=== PATIENT | male | born 1980 | race Caucasian/White ===

== ENCOUNTER 2021-09-18 16:58 | Emergency (ER) | payer OTHER ==
[2021-09-18 17:12] VITALS: BP 131/84; PULSE 65; TEMP 98; BMI 24.7
[2021-09-18] MEDS ORDERED: ASPIRIN 81 MG CHEWABLE TABLETS PO ONE (17:34)
[2021-09-18] MEDS ORDERED: ASPIRIN 81 MG CHEWABLE TABLETS ONE (17:40)
[2021-09-18 18:24] LABS: BASO % 0.6 % (0-2.0); EOS % 2.2 % (0-4.5); HEMATOCRIT 45.7 % (35.4-49); HEMOGLOBIN 15.5 GM/dL (11.7-16.9); LYMPH % 41.3 % (8-40); MCH 32.5 pg (25.7-33.7); MEAN CELL VOLUME 95.6 fl (80-96); MONO % 6.6 % (3.8-10.2); NEUT % 49.3 % (42.8-82.8); RBC 4.78 M/mm3 (4.00-5.60); WHITE BLOOD COUNT 7.4 K/mm3 (4.0-10.0)
[2021-09-18 18:26] LABS: INR 1.07 (0.83-1.09); PROTHROMBIN TIME (PATIENT) 12.3 SEC (9.7-13.0)
[2021-09-18 18:29] LABS: ACTIVATED PTT 32.1 SECONDS (25.2-36.5)
[2021-09-18 18:32] LABS: CALCIUM 9.1 mg/dL (8.5-10.1)
[2021-09-18 18:33] LABS: ALBUMIN 4.6 g/dl (3.4-5.0); BLOOD UREA NITROGEN 15.8 mg/dL (7-18); MAGNESIUM 2.3 mg/dL (1.8-2.4)
[2021-09-18 18:37] LABS: BILIRUBIN,TOTAL 0.5 mg/dL (0.2-1)
[2021-09-18 18:38] LABS: TOT PROT 7.8 g/dl (6.4-8.2)
[2021-09-18 19:03] LABS: PLATELET ESTIMATE NORMAL
[2021-09-18 19:04] LABS: MEAN PLT VOLUME 9.5 fl (7.5-11.1); PLATELET COUNT 225 10^3/uL (134-434)
== END 2021-09-18 22:00 | disposition home or self-care (01) ==
LOC: JER 16:58
DX: R07.9 Chest pain, unspecified (principal)
CPT/HCPCS: 36415; 71046-TC-FY; 80053; 83735; 84484; 85025; 85610; 85730; 99285-25